=== PATIENT | female | born 1940 | race Caucasian/White ===

== ENCOUNTER 2017-12-21 07:05 | Inpatient (IN) | payer MEDICARE, BC ==
[2017-12-21] MEDS: LACTATED RINGER'S 1,000 ML IV* (06:00)
[2017-12-21] MEDS: CEFAZOLIN 2 GM/50 ML (PMX) 50 ML IVPB (06:00)
[~2017-12-21 07:05] MED LIST: BUPIVACAINE 0.5% (SDV) 30 ML, morphine SULFATE (PF) 8 MG, EPINEPHrine 0.3 MG, KETOROLAC... IRR; CEFAZOLIN 1 GM INJ; TRANEXAMIC ACID 1,000 MG in DEXTROSE 5% 100 ML IVPB
[2017-12-21] MEDS: DEXAMETHASONE 1 MG TAB PO (08:26)
[2017-12-21] MEDS: traMADol 50 MG TAB PO (08:27)
[2017-12-21] MEDS: GABAPENTIN 300 MG CAP PO ×2 (08:27→20:37)
[2017-12-21] MEDS ORDERED: MIDAZOLAM 1 MG/ML 2 ML INJ (08:48)
[2017-12-21] MEDS ORDERED: ROPIVACAINE 0.5 % 30 ML VIAL (08:51)
[2017-12-21] MEDS: POLYMYXIN/BACITRACIN 1L IRRIG (09:52)
[2017-12-21] MEDS: BUPIVACAINE 0.5%/EPI (SDV) 30 ML INJ (09:52)
[2017-12-21] MEDS: THROMBIN 5000 UNIT VIAL (09:52)
[2017-12-21] MEDS: CA CHLORIDE 10% 10 ML SYRINGE (09:52)
[2017-12-21] MEDS ORDERED: ONDANSETRON 4 MG INJ (10:43)
[2017-12-21] MEDS ORDERED: ETOMIDATE 20 MG INJ (10:43)
[2017-12-21] MEDS ORDERED: LIDOCAINE 2% (SDV) 5 ML INJ (10:43)
[2017-12-21] MEDS ORDERED: ROCURONIUM 50 MG INJ (10:43)
[2017-12-21] MEDS ORDERED: NEOSTIGMINE 3 MG/3 ML SYRINGE (10:48)
[2017-12-21] MEDS ORDERED: GLYCOPYRROLATE 0.4 MG INJ (10:48)
[2017-12-21] MEDS ORDERED: KETOROLAC 15 MG INJ IV (11:00)
[2017-12-21] MEDS ORDERED: CEFAZOLIN 1 GM/50 ML (PMX) 50 ML IVPB (11:00)
[2017-12-21] MEDS ORDERED: OXYCODONE/ACETAMINOPHEN (5/325) TAB PO (11:00)
[2017-12-21] MEDS ORDERED: ONDANSETRON 4 MG INJ IV ×2 (11:00→11:30)
[2017-12-21] MEDS ORDERED: ACETAMINOPHEN 500 MG TAB PO (11:00)
[2017-12-21] MEDS ORDERED: morphine 2 MG INJ IV ×2 (11:00)
[2017-12-21] MEDS ORDERED: ZOLPIDEM 5 MG TAB PO (11:00)
[2017-12-21] MEDS ORDERED: DIPHENHYDRAMINE 50 MG INJ IV ×2 (11:00→11:30)
[2017-12-21] MEDS ORDERED: MAGNESIUM HYDROXIDE 30ML CUP PO (11:00)
[2017-12-21] MEDS ORDERED: FENTAnyl 50 MCG/ML VIAL IV (11:30)
[2017-12-21] MEDS ORDERED: NALOXONE (0.4 MG/ML) INJ IV (11:30)
[2017-12-21] MEDS ORDERED: LABETALOL HCL 20MG INJ IV (11:30)
[2017-12-21] MEDS ORDERED: hydrALAzine 20 MG INJ IV (11:30)
[2017-12-21] MEDS: TRANEXAMIC ACID 1,000 MG in DEXTROSE 5% 100 ML IV (11:36)
[2017-12-21] MEDS: DEXAMETHASONE 2 MG TAB PO ×2 (13:16→17:40)
[2017-12-21] MEDS: CEFAZOLIN 1 GM/50 ML (PMX) 50 ML IVPB (17:45)
[2017-12-21] MEDS: SENNA/DOCUSATE NA (8.6MG/50MG) TAB PO (20:37)
[2017-12-22] MEDS: DEXAMETHASONE 2 MG TAB PO ×2 (00:24→08:28)
[2017-12-22] MEDS: CEFAZOLIN 1 GM/50 ML (PMX) 50 ML IVPB ×2 (01:43→08:33)
[2017-12-22] MEDS: ASPIRIN 81 MG TAB PO (08:28)
[2017-12-22] MEDS: SENNA/DOCUSATE NA (8.6MG/50MG) TAB PO (08:28)
[2017-12-22] MEDS: OXYCODONE/ACETAMINOPHEN (5/325) TAB PO ×2 (08:55→11:09)
== END 2017-12-22 12:49 | disposition home or self-care (01) | DRG 483 ==
LOC: REC 07:05 → MS1 12:25
PROC: 0RRJ0J6 Replacement of Right Shoulder Joint with Synthetic Substitute, Humeral Surface, Open Approach (ICD-10-PCS; principal; 2017-12-21 09:30)
PROC: 0RPJ0JZ Removal of Synthetic Substitute from Right Shoulder Joint, Open Approach (ICD-10-PCS; 2017-12-21 09:30)
DX: T84.028A Dislocation of other internal joint prosthesis, initial encounter (principal); T84.84XA Pain due to internal orthopedic prosthetic devices, implants and grafts, initial encounter; Z96.611 Presence of right artificial shoulder joint; M75.01 Adhesive capsulitis of right shoulder; Y84.8 Other medical procedures as the cause of abnormal reaction of the patient, or of later complication, without mention of misadventure at the time of the procedure; Y92.019 Unspecified place in single-family (private) house as the place of occurrence of the external cause; Z85.828 Personal history of other malignant neoplasm of skin; Z87.891 Personal history of nicotine dependence
CPT/HCPCS: 73030-RT; 86999; 88300; 97167